=== PATIENT | male | born 1985 | race Caucasian/White ===

== ENCOUNTER 2023-09-17 09:47 | Outpatient (AMB) | payer OTHER, SELFPAY ==
--- NOTE | 2023-09-17 09:49 | A.OFFVIS_ITS ---
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 Suhail is a pleasant 38-year-old male will been diagnose with sleep apnea about 4-5 years ago and since then has been using his CPAP regularly. He said this has made a significant difference in his energy level and fatigue level and if he is great. He also has had weight related issues. 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 He has been trying to lose weight. He used to be 350 lb. Currently weighs 305 lb. He was referred here because of family history of premature cardiomyopathy and congestive heart failure in his father. His father had both sleep apnea as well as diagnose cardiomyopathy at age of 55 as well as atrial fibrillation. He was at that time suggested to have heart transplant but as per the patient father was not very thrilled about the whole thing and was managed medically. However subsequently he at age 65 from advanced congestive heart failure. He is very upset about it and says since then he has been eating more and has gained some weight. He denies any symptoms from cardiac perspective. Denies any symptoms of shortness of breath, orthopnea, PND, leg edema. Denies any palpitations. Denies any lightheadedness, syncope. No exertional chest pain. He was referred here for family history of cardiomyopathy. [facility] Medical History Obstructive sleep apnea Family History Father CHF (congestive heart failure) Mother No problems noted. Social History Patient Tobacco Use Status: Never used Tobacco Review of Systems Const Denies chills, Denies daytime sleepiness, Denies fatigue, Denies fever(s), Sergio es frequent falls, Denies poor appetite, Denies snoring, Denies stops breathing during sleep, Denies weakness, Denies weight gain and Denies weight loss Eyes Denies loss of vision ENT Denies dizziness and Denies hearing loss Card Denies chest pain, Denies claudication, Denies leg edema, Denies lightheadedness, Denies palpitations, Denies dyspnea, Denies dyspnea on exertion and Denies orthopnea Resp Denies cough, Denies excessive phlegm production, Denies dyspnea, Denies dyspnea on exertion, Denies snoring and Denies wheezing GI Denies abdominal pain, Denies hematochezia, Denies change in bowel habits, Denies nausea and Denies vomiting Denies dysuria and Denies urinary frequency Musc Denies arthralgias, Denies muscle weakness, Denies numbness and Denies other (frequent falls) Skin/Breast Denies nail changes and Denies rash Neuro Denies Abnormal speech present, Denies dizziness, Denies frequent falls, Denies loss of vision, Denies memory loss, Denies numbness and Denies weakness Psych Denies depression and Denies memory loss Endo Denies fatigue and Denies palpitations Tristan/Lymph Reports easy bruising and Reports other (anemia) Aller/Immun Denies wheezing Physical Exam Vital Signs: Last Vital Signs BP 124/76 09/17/23 09:53 BMI result Body Mass Index 41.6 Const General: cooperative, comfortable, no acute distress, well developed, alert, awake, Physically active and well groomed Nutritional Appearance: well nourished and obese Orientation/consciousness: patient oriented x3 Limitations: no limitations HEENT Head: Yes normocephalic and Yes atraumatic Neck Neck: Yes trachea midline, Yes supple and Yes no JVD Resp Effort & Inspection: normal respiratory effort Auscultation: clear to auscultation bilaterally Cardio Jugular venous distension: no JVD Palpation: normal PMI Rate: regular rate Rhythm: regular rhythm Heart sounds: S1 normal heart sound present, S2 normal heart sound present, no click, no gallops, no murmurs and no rubs GI Auscultation: normal bowel sounds Skin General skin exam: no rashes or lesions noted Neuro General: patient oriented x3 and no focal motor deficits Speech: No Abnormal speech present Extrem General: Yes no clubbing, cyanosis or edema Psych Appearance: grossly normal Affect: Depressed mood present Office Procedures EKG Details: EKG shows normal sinus rhythm with normal EKG with normal axis and normal intervals with no pre-excitation [id number], Complete Assessment & Plan Assessment & Plan (1) Family history of cardiomyopathy: Code(s): Z82.49 - Family history of ischemic heart disease and other diseases of the circulatory system Category: Medical Plan: Family history of cardiomyopathy which could be related to comorbidities related to sleep apnea. Patient also has sleep apnea. It is possible also that they could have familial genetic cardiomyopathy. I think patient should have an echocardiogram to assess for LV systolic and diastolic function. In absence of genotyping, I would suggest echocardiogram every 5 years to assess for development of LV systolic function as earlier intervention may lead to long- term beneficial effects with avoidance of worsening heart failure syndrome as well as cardiomyopathy. This was discussed with him. He understands agrees. We discussed about heart healthy lifestyle especially pertaining to his weight. We discussed strategies to participate in more regular physical activity and weight loss program. He understands and agrees. He is advised to call me with any new symptoms. (2) Obstructive sleep apnea: Code(s): G47.33 - Obstructive sleep apnea (adult) (pediatric) Category: Medical Plan: Obstructive sleep apnea which has done very well with treatment with CPAP therapy with much improved quality of life. Discussed with him to continue CPAP therapy. Continue participate aggressive weight loss program. He understands agrees. Will follow up in the clinic if need be. Thank you for allowing me to partake in his care Orders: Orders CA echo transthoracic complete Today Z82.49 - Family history of ischemic heart disease and other diseases of the circulatory system Coding Level of Care Code New Pt Level 4 (66201) Diagnoses Family history of cardiomyopathy Z82.49 Obstructive sleep apnea G47.33 CPT Codes EKG - CPT: 78727-[id number], Complete ([id number])
[2023-09-17 09:53] VITALS: BP 124/76; BMI 41.6
== END 2023-09-17 10:19 | disposition home or self-care (01) ==
PROVIDERS: PCP Internal Medicine; Visit Provider Internal Medicine Cardiovascular Disease
DX: Z82.49 Family history of ischemic heart disease and other diseases of the circulatory system (principal); G47.33 Obstructive sleep apnea (adult) (pediatric)
CPT/HCPCS: 93010; 99204

== ENCOUNTER → 2023-09-17 09:47 | Outpatient (BNVA) | payer OTHER, SELFPAY | PROVIDERS: PCP Internal Medicine; Visit Provider Internal Medicine Cardiovascular Disease | DX: G47.33 Obstructive sleep apnea (adult) (pediatric) (principal); Z82.49 Family history of ischemic heart disease and other diseases of the circulatory system; Z99.89 Dependence on other enabling machines and devices | CPT/HCPCS: 93005 ==

== ENCOUNTER → 2023-10-08 10:45 | Outpatient (REF) | payer OTHER, SELFPAY ==
--- NOTE | 2023-10-08 10:50 | CA_ITS ---
Transthoracic Echocardiogram Patient (Last, First, Middle): Suhail Handley A Gender: Male Date of : 1985 Age: 38 Procedure Date: 10/08/2023 Procedure Type: Transthoracic Echocardiogram Location: OP Height: 182.88 cm Weight: 138.8 kg BSA: 2.55 m2 Heart Rate: 72 bpm BP: 124 / 76 mmHg Stage Settings Painter: LISS Referring MD: Macario Singh MD Securities Compliance Examiner: Macario Singh MD Symptoms: Z82.49 - Family history of ischemic heart disease and other diseases of ... Study Quality: Adequate w contrast ECG Rhythm: Sinus Conclusions: - 1. Technically limited study despite use of contrast agent 2. Overall no significant abnormalities noted Findings Procedure Information Contrast agent, definity, is being given per protocol without apparent complications. Left Ventricle Normal left ventricular size, thickness, and systolic function. The visually estimated ejection fraction is between 55-60%. There is no evidence of regional wall motion abnormalities. There is no dynamic left ventricular outflow tract obstruction. Spectral Doppler is indicative of a normal filling pattern. There is mild septal asymmetric hypertrophy. Right Ventricle Normal right ventricular cavity size. Atria The left atrium was not well visualized. Interatrial shunt cannot be excluded. The right atrium was not well visualized. Aortic Valve The aortic valve structure and function is likely normal. There is no aortic valve stenosis. There is no aortic valve regurgitation. Mitral Valve Likely normal mitral valve structure and function. There is no mitral valve regurgitation. There is no mitral valve stenosis. Pulmonic Valve The pulmonic valve was not well visualized. Tricuspid Valve The tricuspid valve was not well visualized. Tricuspid regurgitation envelope is inadequate for calculation of right ventricular systolic pressure. Great Vessels The aorta was not well visualized. The pulmonary artery was not well visualized. There is no dilatation of the ascending aorta measuring 3.00 cm. Venous The inferior vena cava is normal in size. Pericardium/Pleural The pericardium was not well visualized. Prior Study Comparison No prior study available for comparison. Measurements 2D Linear Measurements IVSd: 1.25 0.6-0.9/0.6-1.0 cm LVIDd: 5.79 3.9-5.3/4.2-5.9 cm LVIDd Index: 2.27 2.4-3.2/2.2-3.1 cm/m2 LVIDs: 3.85 2.0-3.6 cm LVPWd: 0.75 0.7-1.1 cm LA Diam: 4.30 2.7-3.8/3.0-4.0 cm LAIDs Index: 1.69 1.5-2.3 cm/m2 LV Mass: 288.82 67-162/88-224 g LV Mass Index: 113.26 43-95/49-115 g/m2 LVOT Diam: 2.40 3.0+(-)1.3 cm 2D Systolic Function EF 4C: 58.70 >55% EF 2C: 62.80 >55% EF BiP: 58.80 >55% Mitral Valve MV Pk E: 1.07 MV PK A: 0.78 MV Decel Time: 147.00 E/A: 1.40 E'Lateral: 9.90 E'Medial: 8.81 E/E' Med: 12.10 E/E' Lat: 10.80 PHT: 43.00 MVA PHT: 5.12 Decel Zapata: 7.27 Aortic Valve AoV Pk Ferny: 1.46 AoV Pk Grad: 9.00 VINH: 3.80 LVOT LVOT Pk Ferny: 1.35 LVOT Mn Ferny: 0.94 LVOT VTI: 0.26 LVOT Pk Grad: 7.00 LVOT Mn Grad: 4.00 LVOT Diam: 2.40 LVOT Area: 4.52 Diastolic Function MV Pk E: 1.07 MV Pk A: 0.78 E/A: 1.40 E'Medial: 8.81 E/E' Med: 12.10 E' Laterial: 9.90 E/E' Lat: 10.80 Right Ventricle TAPSE (mm): 29.30 TVS' Ferny: 18.60 Tricuspid Valve RA Press: 3.00 Great Vessels Aorta Sinus of Valsalva: 3.50 2.0-3.5 cm Ao Asc: 3.00 2.1-3.4 cm Ao Arch: 2.90 Pulmonary Veins Pulm Vein S/D 1.40 Pulmonary Valve PV Pk Ferny: 1.02 Peak PV Grad: 4.00 Updated in Other Vendor System with Status of Final Macario Singh MD electronically signed on 10/08/2023 12:55:59 PM with status of Final
== END ==
LOC: HO.CARD 10:45
PROVIDERS: PCP Internal Medicine; Visit Provider Internal Medicine Cardiovascular Disease
DX: Z13.6 Encounter for screening for cardiovascular disorders (principal); Z82.49 Family history of ischemic heart disease and other diseases of the circulatory system
CPT/HCPCS: 93306; Q9957

== ENCOUNTER → 2023-10-08 10:50 | Outpatient (BNV) | payer OTHER, SELFPAY | PROVIDERS: PCP Internal Medicine; Visit Provider Internal Medicine Cardiovascular Disease | DX: I42.2 Other hypertrophic cardiomyopathy (principal); Z82.49 Family history of ischemic heart disease and other diseases of the circulatory system | CPT/HCPCS: 93306 ==

== ENCOUNTER 2024-04-08 09:34 | Outpatient (AMB) | payer OTHER, SELFPAY ==
--- NOTE | 2024-04-08 09:38 | AM.OFFWIN_ITS ---
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 While every effort has been made to ensure accuracy, environmental services coordinator errors may have been included. The patient is a 39 year old male who presents to the clinic today with cough and wheeze for the past 2 weeks. He reports that every year he does get a cough and wheeze episode that typically is worse in the morning and improves throughout the day. This is similar, however less intense than previous. In the past he has developed bronchitis as a result of this. He does not have any known history of allergies. He denies shortness of breath, fever, chills, body aches, sinus congestion, or any other URI symptoms. He reports a history of sleep apnea, and is compliant with his CPAP. He is able to tolerate that despite his coughing. He has been taking his albuterol inhaler for the cough, it helps a little, but not completely. [facility] Medical History Obstructive sleep apnea Family History Father CHF (congestive heart failure) Mother No problems noted. Social History Patient Tobacco Use Status: Never used Tobacco Review of Systems Const All systems reviewed & are unremarkable except as noted in HPI and below Physical Exam Vital Signs: Last Vital Signs Temp 98.0 F 04/08/24 09:39 Pulse 72 04/08/24 09:39 BP 130/80 04/08/24 09:39 Pulse Ox 96 04/08/24 09:39 Oxygen Delivery Method Room Air 04/08/24 09:39 BMI result Body Mass Index 37.3 Const General: cooperative, healthy appearing, comfortable and no acute distress Orientation/consciousness: patient oriented x3 Limitations: no limitations HEENT Head: Yes normal to inspection Ears: hearing grossly normal bilaterally, external ears normal and TM abnormal retracted General nose exam: Normal external nose present, No nasal discharge present and Abnormal mucous membranes and turbinates present boggy and pale Face and sinus: Yes normal facial exam and Yes sinuses nontender Mouth: Normal oral and palatal mucosa present and moist mucous membranes Throat: Yes tonsils normal, Yes uvula midline, Yes posterior oropharynx abnormal (Erythema), Yes postnasal drainage and Yes cobblestoning Eyes General: appearance normal, both eyes and all related structures Neck Neck: Yes normal visual inspection Resp Effort & Inspection: normal respiratory effort, able to speak in complete sentences, Actively coughing, no respiratory distress, not tachypneic, no tripod positioning and no use of accessory muscles Auscultation: clear to auscultation bilaterally (But tight sounding) Cardio Rate: regular rate Rhythm: regular rhythm Heart sounds: normal S1 and S2 Skin General skin exam: no rashes or lesions noted Neuro General: patient oriented x3 Extrem General: Yes normal to inspection and Yes no clubbing, cyanosis or edema Assessment & Plan Assessment & Plan (1) Allergic rhinitis: Code(s): J30.9 - Allergic rhinitis, unspecified Qualifiers: Allergic rhinitis trigger: unspecified Allergic rhinitis seasonality: unspecified Qualified Code(s): J30.9 - Allergic rhinitis, unspecified Plan: Supportive measures encouraged and reviewed. Advised patient to try a Flonase nasal spray and second-generation antihistamine such as Zyrtec, Claritin, Gwendolyn or similar. Advised consideration of sinus rinse if needed. Advised patient to follow up with primary care provider with worsening or failure to resolve. (2) Asthma exacerbation: Code(s): J45.901 - Unspecified asthma with (acute) exacerbation Qualifiers: Asthma severity: mild Asthma persistence: intermittent Qualified Code(s): J45.21 - Mild intermittent asthma with (acute) exacerbation Plan: Offered albuterol inhaler, however patient has adequate supply at home. Prednisone burst prescribed for symptomatic management. Reviewed goal of use of inhaler less than 2 times per week. Imaging not obtained today due to reassuring examination today. Advised follow up with dyspnea, particularly at rest, fever, or worsening symptoms, despite steroid treatment. Plan See above for full details and plan. Medications: New prednisone 40 mg (2 x 20 mg) PO DAILY 5 days 10 tabs 0RF Coding Level of Care Code New Pt Level 3 (80776) Diagnoses Allergic rhinitis, unspecified seasonality, unspecified trigger J30.9 Allergic rhinitis trigger: unspecified Allergic rhinitis seasonality: unspecified Mild intermittent asthma with exacerbation J45.21 Asthma severity: mild Asthma persistence: intermittent
[2024-04-08 09:39] VITALS: BP 130/80; PULSE 72; TEMP 36.7; O2SAT 96; BMI 37.3
== END 2024-04-08 11:33 | disposition home or self-care (01) ==
PROVIDERS: PCP Internal Medicine; Visit Provider Registered Nurse
DX: J30.9 Allergic rhinitis, unspecified (principal); J45.21 Mild intermittent asthma with (acute) exacerbation

== ENCOUNTER 2024-05-23 11:00 | Emergency (ER) | payer OTHER, SELFPAY ==
[2024-05-23 11:08] VITALS: BP 148/102; PULSE 77; RESP 16; TEMP 36.4; O2SAT 98
[2024-05-23 11:11] VITALS: BMI 37.3
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
[2024-05-23 11:46] LABS: MANUAL DIFF FLAG NO
[2024-05-23 11:49] LABS: Basophils Absolute Auto 0.1 X10*3/uL (0.0-0.2); Basophils Percent Auto 0.6 % (0-2); Eosinophils Absolute Auto 0.3 X10*3/uL (0.0-0.4); Eosinophils Percent Auto 3.7 % (0-4); Hematocrit 49.2 % (42.0-52.0); Hemoglobin 16.4 g/dl (14.0-18.0); Imm Gran Abs Auto 0.03 X10*3/uL (0.00-0.03); Imm Gran Pct Auto 0.3 % (0.0-0.4); Lymphocytes Absolute Auto 1.5 X10*3/uL (1.2-4.9); Lymphocytes Percent Auto 17.5 % (20-40); Mean Corpuscular HGB Conc 33.3 g/dl (31.0-36.0); Mean Corpuscular Hemoglobin 29.3 pg (27.0-33.0); Mean Platelet Volume 9.5 fL (9.4-12.4); Monocytes Absolute Auto 0.5 X10*3/uL (0.1-1.2); Monocytes Percent Auto 5.8 % (2-11); Neutrophils Absolute Auto 6.3 x10*3/uL (2.0-8.3); Neutrophils Percent Auto 72.1 % (45-73); Platelet Count 215 X10*3/uL (160-400); Red Blood Count 5.59 X10*6/uL (4.60-5.80); Red Cell Distribution Width 12.8 % (11.0-16.0); White Blood Count 8.7 X10*3/uL (4.8-10.8)
[2024-05-23 11:59] VITALS: BP 162/105; PULSE 81; RESP 16; TEMP 36.4; O2SAT 95
[2024-05-23 12:05] LABS: Alanine Aminotransferase 46 U/L (0-40); Albumin Level 4.7 g/dL (3.5-5.0); Alkaline Phosphatase 77 U/L (39-117); Anion Gap 16 (12-20); Aspartate Amino Transferase 29 U/L (5-37); Bilirubin Direct 0.3 mg/dL (0.0-0.5); Bilirubin Total 1.1 mg/dL (0.0-1.0); Blood Urea Nitrogen 19 mg/dL (9-16); Calcium 10.2 mg/dL (8.4-10.2); Carbon Dioxide 25 mmol/L (22-29); Chloride 105 mmol/L (96-108); Creatinine Clr Calc Pharmacy 150.3; Estimated Glomerular Filt Rate > 60; Glucose Random 93 mg/dL (60-115); Potassium 4.5 mmol/L (3.3-5.1); Sodium 141 mmol/L (135-145); Total Protein 7.7 g/dL (6.5-8.0)
[2024-05-23 13:01] LABS: HBS Num1 25.94 mIU/mL (0-7.99); HBc Num1 0.15 S/CO (0.00-0.79); HIV AB/AG Nonreactive (Nonreactive); HIV Num 1 0.05 S/CO (0.00-0.99); Hepatitis B Core Antibody Nonreactive (Nonreactive); Hepatitis B Surface Antigen Negative (Negative); ~HepC Num1 0.11 S/CO (0.00-0.79); ~Hepatitis B Surface Antibody REACTIVE (Nonreactive); ~Hepatitis C Antibody Nonreactive (Nonreactive)
== END 2024-05-23 12:01 | disposition home or self-care (01) ==
PROVIDERS: Nurse Practitioner Family; Emergency Provider Emergency Medicine; PCP Internal Medicine
DX: Z20.828 Contact with and (suspected) exposure to other viral communicable diseases (principal); Z79.899 Other long term (current) drug therapy
CPT/HCPCS: 36415; 80048; 80076; 85025; 86704; 86706; 86803; 87340; 87389; 99282; 99283

== ENCOUNTER 2024-10-18 13:06 | Outpatient (AMB) | payer OTHER, SELFPAY ==
--- NOTE | 2024-10-18 13:14 | MHC.PC.OV ---
Vital Signs 10/18/24 13:20 10/18/24 13:25 Height 5 ft 10.67 in Weight 270 lb 2 oz BMI 38.0 BP 136/102 H 142/94 H Blood Pressure Location Rt brachial Lt brachial Position Sitting Sitting Respiration 16 Pulse 83 Pulse Source Pulse Oximeter Pulse Oximetry (%) 98 Oxygen Delivery Method Room Air Intake Visit Reasons: Establish Care Intake Note: New patient visit Hvac Mechanic Required: No Allergies No Known Allergies Allergy (Verified 10/18/24 13:17) Medication List - Last Reconciled 10/18/24 by Ana Maria iKm MD albuterol sulfate 90 mcg/actuation 2 puffs inhalation Q6H PRN calcium carbonate (Tums) 200 mg PO BID PRN CPAP (CPAP Machine/Device) As directed cyclobenzaprine 5 mg PO BEDTIME PRN gabapentin 300 - 600 mg (1 - 2 x 300 mg) PO BEDTIME naproxen sodium (Aleve) 220 mg PO BID PRN Tobacco use date assessed: 10/18/24 Dental Screening Dental Screen Date: 10/18/24 Did you have a dental visit in the last 12 months?: Yes Did you have a dental problem in the last 6 months where you did not have access to dental care?: No Was dental information given to patient?: Patient has dentist HPI HPI Comments History of Present Illness Details This is a 39 year old male with a past medical history of hypertension, hld, RICHARD, obesity, anxiety, insomnia presenting to establish care CV: BP elevated today. Checks at home and is ok. Declines medications. Saw cardiology last year for family history of premature CM, afib. RICHARD: on cpap Taking naproxen at time. Cant get comfortable, is achy at night. ROS see HPI PHYSICAL EXAM: GENERAL: Alert and oriented x 3. NAD EYES: EOMI. Anicteric. HENT: Moist mucous membranes. No scleral icterus. No cervical lymphadenopathy. LUNGS: Clear to auscultation bilaterally. CARDIOVASCULAR: Regular rate and rhythm. No murmur. No JVD. ABDOMEN: Soft, non-tender +bs EXTREMITIES: No edema. Non-tender. SKIN: No rashes or lesions. Warm. NEUROLOGIC: No focal neurological deficits. CN II-XII grossly intact PSYCHIATRIC: Cooperative. Appropriate mood and affect [facility] Medical History Obstructive sleep apnea Surgical History No pertinent past surgical history Family History Father CHF (congestive heart failure) Mother No problems noted. 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 1. Little interest or pleasure in doing things: not at all 2. Feeling down, depressed, or hopeless: not at all 3. Trouble falling or staying asleep, or sleeping too much: several days 4. Feeling tired or having little energy: not at all 5. Poor appetite or overeating: not at all 6. Feeling bad about yourself - or that you are a failure or have let yourself or your family down: not at all 7. Trouble concentrating on things, such as reading the newspaper or watching television: not at all 8. Moving or speaking so slowly that other people could have noticed. Or the opposite - being so fidgety or restless that you have been moving around a lot more than usual: not at all 9. Thoughts that you would be better off or of hurting yourself in some way: not at all Total score: 1 Depression Screening Interpretation: Negative Depression Screening Done: Yes 11336 - PHQ-9 Billing: Yes Source: Developed by Drs. Abram Fernández, Johana Hollis, Sheldon Rankin and colleagues, with an educational bran from [employer]. Thrive Questionnaire Date Thrive assessed: 10/18/24 I am a: Patient What is your living situation today?: I have a steady place to live Within the past 12 months, did the food you bought not last and you didn't have the money to get more?: I choose not to answer this question Within the past 12 months, did you worry whether your food would run out before you got money to buy more?: I choose not to answer this question Do you have trouble paying for medicines?: I choose not to answer this question Do you have trouble getting transportation to medical appointments?: I choose not to answer this question Do you have trouble paying your heating and electricity bill?: I choose not to answer this question Do you have trouble taking care of your child, family member or friend?: I choose not to answer this question Do you have trouble with day-to-day activities such as bathing, preparing meals, shopping, managing finances, etc.?: I choose not to answer this question Are you currently unemployed and looking for a job?: I choose not to answer this question Are you interested in more education?: I choose not to answer this question Please select the resources that you would like help with: None Currently or been in a relationship where the following occur: No concerns reported THRIVE Score: 0 AUDIT C Alcohol Use Questionnaire (AUDIT-C) 1. How often do you have a drink containing alcohol?: Monthly or less 2. How many drinks containing alcohol do you have on a typical day when you are drinking?: 1 or 2 3. How often do you have six or more drinks on one occasion?: Never Total Score: 1 AMANDA-7 AMB Questionnaire AMANDA-7 Date AMANDA - 7 assessed: 10/18/24 Feeling nervous, anxious, or on edge: 0 = Not at all Not being able to stop or control worryin = Not at all Worrying too much about different things: 0 = Not at all Trouble relaxin = Not at all Being so restless that it is hard to sit still: 0 = Not at all Becoming easily annoyed or irritable: 0 = Not at all Feeling afraid as if something awful might happen: 0 = Not at all Total AMANDA-7 score (0-4 normal; 5-9 mild; 10-14 moderate; 15-21 severe): 0 Source: Developed by Drs. Abram Fernández, Johana Hollis, Sheldon Rankin and colleagues, with an educational bran from [employer]. AMANDA-7 Assessment Billing AMANDA-7 Assessment Tool: AMANDA-7 Assessment 07782 ACT Questionnaire In the past 4 weeks, how much of the time did your asthma keep you from getting as much done at work, school or at home?: None of the time During the past 4 weeks, how often have you had shortness of breath?: Not at all During the past 4 weeks, how often did your asthma symptoms wake you up at night or earlier than usual in the morning?: Not at all During the past 4 weeks, how often have you had to use your rescue inhaler or nebulizer medication?: Once a week or less (One time over the past 4 weeks) How would you rate your asthma control during the past 4 weeks?: Completely controlled ACT Interpretation: Positive Score: 24 Physical exam (Primary Care) Vital Signs: Last Vital Signs Pulse 83 10/18/24 13:20 Resp 16 10/18/24 13:20 BP 142/94 H 10/18/24 13:25 Pulse Ox 98 10/18/24 13:20 Oxygen Delivery Method Room Air 10/18/24 13:20 BMI result Body Mass Index 38.0 Tobacco/Smoking Status: Tobacco use Status Tobacco use date assessed 10/18/24 10/18/24 13:27 Patient Tobacco Use Status Never used Tobacco 10/18/24 13:27 e-Cigarette/Vaping Use Never Used 10/18/24 13:27 PHQ-9: PHQ-9 Score PHQ-9: Total score 1 10/18/24 13:27 Depression Screening Interpretation: Negative Thrive Assessment: Date of Thrive Assessment Date Thrive assessed 10/18/24 10/18/24 13:27 Currently or been in a relationship where the following occur: No concerns reported Coding Level of Care Code New Pt Level 4 (29520) Diagnoses Polyarthralgia M25.50 Obstructive sleep apnea G47.33 Elevated blood pressure reading R03.0 Additional Codes Asthma Control Questionnaire - ACT Interpretation: Positive ([id number]) AMANDA-7 Assessment Billing - AMANDA-7 Assessment Tool: AMANDA-7 Assessment 59541 ([id number]) PHQ-9 - 96626 - PHQ-9 Billing: Yes ([id number]) Assessment & Plan Assessment & Plan (1) Polyarthralgia: Code(s): M25.50 - Pain in unspecified joint Category: Medical (2) Obstructive sleep apnea: Code(s): G47.33 - Obstructive sleep apnea (adult) (pediatric) Category: Medical (3) Elevated blood pressure reading: Code(s): R03.0 - Elevated blood-pressure reading, without diagnosis of hypertension Category: Medical Plan 39 yo to reestablish care Interval history reviewed Past medical, surgical, social and family history reviewed RICHARD-on cpap Arthralgia-gabapentin, flexeril qhs prn asthma well controlled Orders: Orders Complete Blood Count Auto Diff Today G47.33 - Obstructive sleep apnea (adult) (pediatric), R03.0 - Elevated blood-pressure reading, without diagnosis of hypertension, Z13.0 - Encounter for screening for diseases of the blood and blood-forming organs and certain disorders involving the immune mechanism, Z82.49 - Family history of ischemic heart disease and other diseases of the circulatory system Testosterone, Free/Total Today G47.33 - Obstructive sleep apnea (adult) (pediatric), R03.0 - Elevated blood-pressure reading, without diagnosis of hypertension, Z13.0 - Encounter for screening for diseases of the blood and blood-forming organs and certain disorders involving the immune mechanism, Z82.49 - Family history of ischemic heart disease and other diseases of the circulatory system Comprehensive Met. Panel Today G47.33 - Obstructive sleep apnea (adult) (pediatric), R03.0 - Elevated blood-pressure reading, without diagnosis of hypertension, Z13.0 - Encounter for screening for diseases of the blood and blood-forming organs and certain disorders involving the immune mechanism, Z82.49 - Family history of ischemic heart disease and other diseases of the circulatory system Lipid Panel Today G47.33 - Obstructive sleep apnea (adult) (pediatric), R03.0 - Elevated blood-pressure reading, without diagnosis of hypertension, Z13.0 - Encounter for screening for diseases of the blood and blood-forming organs and certain disorders involving the immune mechanism, Z82.49 - Family history of ischemic heart disease and other diseases of the circulatory system Hemoglobin A1c Today G47.33 - Obstructive sleep apnea (adult) (pediatric), R03.0 - Elevated blood-pressure reading, without diagnosis of hypertension, Z13.0 - Encounter for screening for diseases of the blood and blood-forming organs and certain disorders involving the immune mechanism, Z82.49 - Family history of ischemic heart disease and other diseases of the circulatory system TSH reflex Free T4 Today G47.33 - Obstructive sleep apnea (adult) (pediatric), R03.0 - Elevated blood-pressure reading, without diagnosis of hypertension, Z13.0 - Encounter for screening for diseases of the blood and blood-forming organs and certain disorders involving the immune mechanism, Z82.49 - Family history of ischemic heart disease and other diseases of the circulatory system Lyme IgG/IgM w/reflex to WB Today M25.50 - Pain in unspecified joint Medications: New CPAP (CPAP Machine/Device) As directed 1 ea 0RF cyclobenzaprine 5 mg PO BEDTIME PRN 30 tabs 3RF muscle spasm gabapentin 300 - 600 mg (1 - 2 x 300 mg) PO BEDTIME 180 caps 3RF cyclobenzaprine 5 mg PO BEDTIME PRN 30 tabs 3RF muscle spasm gabapentin 300 - 600 mg (1 - 2 x 300 mg) PO BEDTIME 180 caps 3RF
[2024-10-18 13:20] VITALS: BP 136/102; PULSE 83; RESP 16; O2SAT 98; BMI 38.0
[2024-10-18 13:25] VITALS: BP 142/94
== END 2024-10-18 16:36 | disposition home or self-care (01) ==
LOC: HO.HMCFM 13:07
PROVIDERS: PCP Internal Medicine; Visit Provider Internal Medicine
DX: M25.50 Pain in unspecified joint (principal); G47.33 Obstructive sleep apnea (adult) (pediatric); R03.0 Elevated blood-pressure reading, without diagnosis of hypertension

== ENCOUNTER → 2024-10-18 13:06 | Outpatient (BNVA) | payer OTHER, SELFPAY | PROVIDERS: PCP Internal Medicine; Visit Provider Internal Medicine | DX: R03.0 Elevated blood-pressure reading, without diagnosis of hypertension (principal); G47.33 Obstructive sleep apnea (adult) (pediatric); M25.50 Pain in unspecified joint; E78.5 Hyperlipidemia, unspecified; J45.909 Unspecified asthma, uncomplicated; Z99.89 Dependence on other enabling machines and devices; Z13.30 Encounter for screening examination for mental health and behavioral disorders, unspecified; Z13.31 Encounter for screening for depression; Z13.0 Encounter for screening for diseases of the blood and blood-forming organs and certain disorders involving the immune mechanism; Z82.49 Family history of ischemic heart disease and other diseases of the circulatory system | CPT/HCPCS: 96127; 96160 ==

== ENCOUNTER 2024-10-20 08:06 | Outpatient (REF) | payer OTHER, SELFPAY ==
[2024-10-20 08:23] LABS: MANUAL DIFF FLAG NO
[2024-10-20 09:00] LABS: Basophils Percent Auto 0.6 % (0-2); Eosinophils Absolute Auto 0.3 X10*3/uL (0.0-0.4); Hematocrit 46.5 % (42.0-52.0); Hemoglobin 15.2 g/dl (14.0-18.0); Imm Gran Abs Auto 0.02 X10*3/uL (0.00-0.03); Imm Gran Pct Auto 0.3 % (0.0-0.4); Lymphocytes Absolute Auto 1.5 X10*3/uL (1.2-4.9); Lymphocytes Percent Auto 22.8 % (20-40); Mean Corpuscular HGB Conc 32.7 g/dl (31.0-36.0); Mean Corpuscular Hemoglobin 29.2 pg (27.0-33.0); Mean Corpuscular Volume 89.3 fL (80.0-98.0); Mean Platelet Volume 9.6 fL (9.4-12.4); Monocytes Absolute Auto 0.5 X10*3/uL (0.1-1.2); Neutrophils Absolute Auto 4.4 x10*3/uL (2.0-8.3); Neutrophils Percent Auto 65.3 % (45-73); Platelet Count 212 X10*3/uL (160-400); Red Blood Count 5.21 X10*6/uL (4.60-5.80); Red Cell Distribution Width 13.2 % (11.0-16.0); White Blood Count 6.7 X10*3/uL (4.8-10.8)
[2024-10-20 09:05] LABS: Estimated Average Glucose 100 mg/dL; Hemoglobin A1c % 5.1 % (<6.0)
[2024-10-20 10:52] LABS: Alanine Aminotransferase 34 U/L (0-40); Albumin Level 4.5 g/dL (3.5-5.0); Anion Gap 12 (12-20); Aspartate Amino Transferase 26 U/L (5-37); Blood Urea Nitrogen 15 mg/dL (9-16); Calcium 9.7 mg/dL (8.4-10.2); Carbon Dioxide 27 mmol/L (22-29); Chloride 109 mmol/L (96-108); Cholesterol 239 mg/dL (<200); Estimated Glomerular Filt Rate > 60; Glucose Random 91 mg/dL (60-115); HDL Cholesterol 46 mg/dL (>40); LDL Cholesterol Calculated 165 mg/dL (<100); Potassium 4.3 mmol/L (3.3-5.1); Sodium 144 mmol/L (135-145); Triglycerides 140 mg/dL (<150)
[2024-10-20 11:14] LABS: TSH reflex Free T4 0.76 uIU/mL (0.32-4.0)
[2024-10-20 13:02] LABS: Alkaline Phosphatase 68 U/L (39-117)
[2024-10-25 14:18] LABS: Lyme Abs Screen <0.90 index
[2024-10-25 21:33] LABS: Testosterone, Free 39.2 pg/mL (35.0-155.0); Testosterone, Total 212 ng/dL (250-1100)
== END 2024-10-20 08:07 | disposition home or self-care (01) ==
LOC: HO.LAB 08:06
PROVIDERS: Visit Provider Internal Medicine
DX: R03.0 Elevated blood-pressure reading, without diagnosis of hypertension (principal); M25.50 Pain in unspecified joint; G47.33 Obstructive sleep apnea (adult) (pediatric); Z82.49 Family history of ischemic heart disease and other diseases of the circulatory system; Z13.0 Encounter for screening for diseases of the blood and blood-forming organs and certain disorders involving the immune mechanism; Z13.1 Encounter for screening for diabetes mellitus; Z13.6 Encounter for screening for cardiovascular disorders
CPT/HCPCS: 36415; 80053; 80061; 83036; 84402; 84403; 84443; 85025; 86617; 86618

== ENCOUNTER 2025-03-10 15:17 | Outpatient (AMB) | payer OTHER, SELFPAY ==
--- NOTE | 2025-03-10 15:22 | MHC.OFFVIS ---
Intake Visit Reasons: LOW TESTOSTERONE Intake Note: Patient is present for LOW TESTOSTRONE Urology Medication:NONE Antibiotic Allergy:NONE Blood Thinner:NONE TODAY'S PVR: 1ML'S Twisting Department End Finder Required: No Allergies No Known Allergies Allergy (Verified 03/10/25 15:56) Medication List - Last Reconciled 03/10/25 by PALMA Menjivar albuterol sulfate 90 mcg/actuation 2 puffs inhalation Q6H PRN calcium carbonate (Tums) 200 mg PO BID PRN CPAP (CPAP Machine/Device) As directed cyclobenzaprine 5 mg PO BEDTIME PRN gabapentin 300 - 600 mg (1 - 2 x 300 mg) PO BEDTIME naproxen sodium (Aleve) 220 mg PO BID PRN HPI Comments Details: Suhail is a very pleasant 39-year-old male patient of Dr. Kim. He has a past medical history of obstructive sleep apnea. He presents to the office today as a new patient for low testosterone. In discussion with the patient today reports having followed up with his PCP in discussing issues with low libido at which time testosterone was drawn and noted to be low and recommendations were made for urology referral for further assessment evaluation. In review of patient's chart it appears testosterone 11/10 212 free testosterone 39.2. He otherwise denies any bothersome urinary issues. He denies urinary urgency, urinary frequency, incontinence, nocturia, hematuria, dysuria, foul smelling urine, changes to urinary stream, flank pain, fever, and or chills. He is happy with his current voiding parameters. In office urinalysis results reviewed with the patient today. He is also enquiring potential near future workup for family planning as he does plan to have a child in the near future. He denies any recent viral illnesses and or recreational drug use. We did discuss at length potential causes of low testosterone as well as further treatment options and risks and benefits of these treatment options. He does report sleep apnea in his compliant with his CPAP. We discussed lifestyle modifications. All questions were answered. He otherwise offers no other issues or concerns at this time. 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 Current occupational exposures/hazards: No Cognitive needs: No Hearing needs: No Vision needs: No Review of Systems Const All systems reviewed & are unremarkable except as noted in HPI and below Physical Exam Const General: cooperative, healthy appearing, comfortable, no acute distress, well developed, alert and awake Nutritional Appearance: overweight Orientation/consciousness: patient oriented x3 Limitations: no limitations HEENT Head: Yes normal to inspection, Yes normocephalic and Yes atraumatic Ears: hearing grossly normal bilaterally Eyes General: appearance normal, both eyes and all related structures Neck Neck: Yes normal visual inspection and Yes trachea midline Chest Chest palpation & inspection: normal inspection of the chest Resp Effort & Inspection: normal respiratory effort and able to speak in complete sentences Cardio Rate: regular rate GI Inspection: Yes normal to inspection General: Yes no CVA tenderness Back/Spine/Pelvis Back: no CVA tenderness Skin General skin exam: no rashes or lesions noted Neuro General: patient oriented x3 Extrem General: Yes normal to inspection Psych Appearance: grossly normal and well kempt Mental Status: mental status grossly normal Speech and movement: Normal speech and movement present and Clear speech present Affect: normal affect Attitude: cooperative Thought process: Normal thought process present Thought content: Normal thought content present Insight: Fair insight present (Psych) Judgement: Fair judgement present (Psych) Office Procedures Post Void Residual Post Residual Void Post Void Residual (PVR): 1 [id number] Void Residual by ultrasound Results AMB Urinalysis, Automated UA Leukoctes 0 Josemanuel/uL Last Edit by ROCK Siu on 03/10/25 15:40 UA Nitrite Negative Last Edit by ROCK Siu on 03/10/25 15:40 UA Urobilinogen 0.2 mg/dL Last Edit by ROCK Siu on 03/10/25 15:40 UA Protein 0 mg/dL Last Edit by ROCK Siu on 03/10/25 15:40 UA pH 6.0 Last Edit by ROCK Siu on 03/10/25 15:40 UA Blood 10 Shyam/uL Last Edit by ROCK Siu on 03/10/25 15:40 UA Specific [place] 1.020 Last Edit by ROCK Siu on 03/10/25 15:40 UA Ketone Negative Last Edit by ROCK Siu on 03/10/25 15:40 UA Bilirubin 0 mg/dL Last Edit by ROCK Siu on 03/10/25 15:40 UA Glucose 0 mg/dL Last Edit by ROCK Siu on 03/10/25 15:40 Results Reviewed Results Reviewed: Laboratory Last Values Urine pH (Auto) 6.0 03/10/25 15:40 Specific [place] (Auto) 1.020 03/10/25 15:40 Urine Protein (Auto) 0 mg/dL 03/10/25 15:40 Glucose (UA)(Auto) 0 mg/dL 03/10/25 15:40 Urine Ketones (Auto) Negative 03/10/25 15:40 Urine Blood (Auto) 10 Shyam/uL 03/10/25 15:40 Urine Nitrite (Auto) Negative 03/10/25 15:40 Urine Bilirubin (Auto) 0 mg/dL 03/10/25 15:40 Urine Urobilinogen (Auto) 0.2 mg/dL 03/10/25 15:40 Leukocyte Esterase (Auto) 0 Josemanuel/uL 03/10/25 15:40 Assessment & Plan Assessment & Plan (1) Low testosterone: Code(s): R79.89 - Other specified abnormal findings of blood chemistry Category: Medical (2) Low libido: Code(s): R68.82 - Decreased libido Category: Medical Plan In office urinalysis results reviewed with the patient today; as noted above. Most recent testosterone results reviewed with the patient today; as noted above. We did discussed potential causes of borderline low testosterone as well as further treatment options and risks and benefits of these treatment options. All questions were answered. We did discussed lifestyle modifications to assist with borderline low testosterone. He denies any bothersome urinary issues or concerns. He reports be happy with current voiding parameters. Will obtain redraw of testosterone free and total, prolactin, LH, FSH, SHBG, and estradiol for further assessment evaluation. Follow-up in 1-3 months with labs to be completed prior; or sooner with any issues, concerns, and or questions. Orders: Orders AMB Urinalysis Automated Today Z13.9 - Encounter for screening, unspecified Testosterone, Free/Total Today R79.89 - Other specified abnormal findings of blood chemistry Prolactin Today R79.89 - Other specified abnormal findings of blood chemistry Lutenizing Hormone Today R79.89 - Other specified abnormal findings of blood chemistry Follicle Stimulating Hormone Today R79.89 - Other specified abnormal findings of blood chemistry Urine Cytology Today R31.29 - Other microscopic hematuria Sex Hormone Binding Globulin Today R79.89 - Other specified abnormal findings of blood chemistry Estrad Free (Tot Ultra + Free) Today R79.89 - Other specified abnormal findings of blood chemistry Patient Instructions: The patient had an opportunity to ask questions regarding the treatment plan. All questions were answered. Physical exam, labs, and imaging were discussed and reviewed in detail. As well as risks, benefits, and discussion of treatment choices. No major barriers to understanding were identified. The patient expressed understanding and agreement with the above treatment plan. The patient was made aware they should contact our office by phone for worsening of their current condition, the appearance of new symptoms, or with any questions or concerns. Compliance is encouraged with any medications and follow up testing that is ordered. It is a privilege to be allowed the opportunity to participate in? your urological care.? Again, if you have any questions or concerns If you have any questions or concerns please do not hesitate to contact me. The office is [phone]. This note is constructed using voice recognition software. While every effort has been made to ensure accuracy senior program manager errors may have been included. Yours sincerely, OSVALDO Menjivar-MILVIA Coding Level of Care Code New Pt Level 3 (53962) Diagnoses Low testosterone R79.89 Low libido R68.82 CPT Codes Post Residual Void - PVR CPT Code: 30781-Qbxo Void Residual by ultrasound ([id number])
--- OUTSIDE RECORDS SUMMARY | 2025-03-10 19:06 | XMS_ITS | Clinical Summary ---
Author Organization [facility] Address [address] [place] [phone] Phone Care Team Providers Care Proposal Review Analyst Name Role Phone Pcp, Unknown Primary Care Provider Unavailabl e Social History Tobacco Use Types Packs/Day Years Used Date Smoking Tobacco: Never Assessed Education Answer Date Recorded Are you interested in more education? Not on joey e 09/14/2022 Are you concerned about learning? Not on file 09/14/2022 No 09/14/2022 No 09/14/2022 Digital Access Answer Date Recorded No 10/15/2022 No 10/15/2022 Reliable internet access at home? Not on file 10/15/2022 Device with a working camera? Not on file Comments Unknown Sex and Gender Information Value Date Recorded Sex Assigned at Not on file Legal Sex Unknown 10/30/2021 3:43 PM EDT Gender Identity Not on file Sexual Orientation Not on file Plan of Treatment Not on file Medical Devices Not on file Care Teams Proposal Review Analyst Relationship Specialty Start Date End Date Pcp, Unknown PCP - General 10/31/21 Additional Source Comments The information contained in this document represents components of the legal health record. It is not the complete legal health record.[facility]
--- OUTSIDE RECORDS SUMMARY | 2025-03-10 19:06 | XMS_ITS | Encounter Summary ---
Author Organization [facility] Address [address] [place] [phone] Phone Care Team Providers Care Director Financial Planning Name Role Phone Pcp, Unknown Primary Care Provider Unavailabl e Encounter Details Date Type Department Care Team (Latest Contact Info) Description 10/31/2021 Transcribe Orders [facility] Specimen Processing [address] [place] [address] Donna Finney MD [address] [place] [address] [email or web address] Anemia, unspecified type (Primary Dx) Social History Tobacco Use Types Packs/Day Years Used Date Smoking Tobacco: Never Assessed Comments Unknown Sex and Gender Information Value Date Recorded Sex Assigned at Not on file Legal Sex Unknown 10/30/2021 3:43 PM EDT Gender Identity Not on file Sexual Orientation Not on file documented as of this encounter Plan of Treatment Not on file documented as of this encounter Visit Diagnoses Diagnosis Anemia, unspecified type- Primary documented in this encounter Care Teams Director Financial Planning Relationship Specialty Start Date End Date Pcp, Unknown PCP - General 10/31/21 documented as of this encounter Additional Source Comments The information contained in this document represents components of the legal health record. It is not the complete legal health record.[facility]
== END 2025-03-10 15:53 | disposition home or self-care (01) ==
LOC: HO.HUSH 15:18
PROVIDERS: PCP Internal Medicine; Visit Provider Nurse Practitioner Family
DX: R79.89 Other specified abnormal findings of blood chemistry (principal); R68.82 Decreased libido; Z13.9 Encounter for screening, unspecified
CPT/HCPCS: 99203

== ENCOUNTER 2025-03-10 15:17 | Outpatient (REF) | payer OTHER, SELFPAY | END 2025-03-10 15:18 | disposition home or self-care (01) | LOC: HO.LAB 15:17 | PROVIDERS: PCP Internal Medicine; Visit Provider Nurse Practitioner Family | DX: R31.29 Other microscopic hematuria (principal); R79.89 Other specified abnormal findings of blood chemistry; R68.82 Decreased libido; Z13.89 Encounter for screening for other disorder | CPT/HCPCS: 51798; 81003; 88112 ==